=== PATIENT | female | born 1950 | race Caucasian/White ===

== ENCOUNTER 2019-05-18 17:10 | Inpatient (IN) | payer MEDICARE, OTHER ==
[~2019-05-18] VITALS: Ht 157.5 cm; Wt 62.3 kg
[~2019-05-18 17:10] MED LIST: ACET-3067 PO; AMLO10TA4 PO; ASPI-611 PO; ATOR10TA70 PO; CARV3.122 PO; CHLO25TA2 PO; GLIP10TA11 PO; LOSA100T57 PO; METF-438 PO; MULT-1085 PO; TRAM50TA2 PO
[2019-05-18] MEDS ORDERED: vancomycin/NS 1 GM ADD-VANTAGE 250 ML IV ONE (17:40)
[2019-05-18] MEDS ORDERED: piperacillin/tazo 3.375gm/50ml 50 ML IV ONE (17:40)
--- NOTE | 2019-05-18 17:45 | NUR ---
Note gerardo in EDM - 05/18/19 at 1839 by MALATHI Unable to assess pedal or tibialis pulse on left foot viad doppler. Dr. Mccord notified and is aware.
--- NOTE | 2019-05-18 17:45 | NUR ---
Unable to assess pedal or tibialis pulse on left foot via doppler. Dr. Mccord notified and is aware.
--- NOTE | 2019-05-18 17:49 | NUR ---
XR at bedside
--- NOTE | 2019-05-18 18:22 | NUR ---
Phlebotomy at bedside for blood draw.
--- NOTE | 2019-05-18 18:43 | NUR ---
Dr. Mccord at bedside assessing pedal pulse via doppler.
--- NOTE | 2019-05-18 18:46 | NUR ---
Per Brandon. Suri, +1 weak pulse at L-popliteal, no pulses assessed at posterior tibialis or pedal sites to LLE.
[2019-05-18 18:48] LABS: BASOPHILS # (AUTO) 0.1 X10'3 (0-0.2); EOSINOPHILS % (AUTO) 0 % (0-6); HEMOGLOBIN 9.1 g/dl (12.0-16.0); MONOCYTES # (AUTO) 1.1 X10'3 (0-0.9)
[2019-05-18 18:50] LABS: BASOPHILS % (AUTO) 0.3 % (0-1); HEMATOCRIT 28.5 % (35.0-45.0); LYMPHOCYTES % (AUTO) 4.2 % (21-51); MEAN CORPUSCULAR HEMOGLOBIN 25.2 PG (27.0-31.0); MEAN PLATELET VOLUME 8.3 FL (7.4-10.4); MONOCYTES % (AUTO) 4.6 % (2-12); NEUTROPHILS # (AUTO) 21.3 X10'3 (1.8-7.7); NEUTROPHILS % (AUTO) 90.9 % (42-75); PLATELET COUNT 672 X10'3 (140-440); RED BLOOD COUNT 3.61 X10'6 (4.20-5.60); WHITE BLOOD COUNT 23.5 X10'3 (4.5-11.0)
[2019-05-18 19:03] LABS: ALANINE AMINOTRANSFERASE 13 U/L (12-78); ALBUMIN 2.1 G/DL (3.4-5.0); ALBUMIN/GLOBULIN RATIO 0.4 (1.1-1.5); ALKALINE PHOSPHATASE 215 IU/L (46-116); ANION GAP 11 (8-16); ASPARTATE AMINO TRANSFERASE 13 U/L (10-37); BILIRUBIN,TOTAL 0.2 MG/DL (0.1-1.0); BLOOD UREA NITROGEN 34 MG/DL (7-18); BUN/CREATININE RATIO 14.2 (6.6-38.0); CALCIUM 8.7 MG/DL (8.5-10.1); CHLORIDE 95 MMOL/L (99-107); CREATININE 2.39 MG/DL (0.40-0.90); GLUCOSE 299 MG/DL (70-104); MAGNESIUM 1.7 MG/DL (1.5-2.4); SODIUM 132 MMOL/L (135-145); TOTAL CARBON DIOXIDE 25.8 MMOL/L (24-32); eGFR 20 ML/MIN
[2019-05-18 19:05] LABS: PARTIAL THROMBOPLASTIN TIME 43 SECONDS (22-32)
[2019-05-18 19:17] LABS: C-REACTIVE PROTEIN 37.08 MG/DL (0.0-0.5)
[2019-05-18] MEDS ORDERED: LEVO75TA PO (19:27)
[2019-05-18] MEDS ORDERED: LISI40TA4 PO (19:28)
--- NOTE | 2019-05-18 20:20 | NUR ---
VASCULAR AT BEDSIDE
[2019-05-18] MEDS ORDERED: INSU100V9 SQ (20:41)
[2019-05-18] MEDS: insulin glargine (Lantus) pen - multi-dose SQ SCH (21:00)
--- NOTE | 2019-05-18 21:01 | NUR ---
Pt made aware that a UA is needed for eval for admittance. Pt verbalized understanding.
[2019-05-18] MEDS ORDERED: mag hydrox/Alum hydrox/simeth 30ml oral suspension PO PRN (21:05)
[2019-05-18] MEDS ORDERED: magnesium hydroxide 30ml (MOM) UD suspension PO PRN (21:05)
[2019-05-18] MEDS ORDERED: morphine 2 MG/ML inj. syringe IV PRN (21:05)
[2019-05-18] MEDS ORDERED: HYDROcodone/acetaminophen 5mg/325mg tablet PO PRN (21:05)
[2019-05-18] MEDS ORDERED: acetaminophen 325mg tablet PO PRN (21:05)
[2019-05-18] MEDS ORDERED: dextrose 50%-water 50ml dispensing syringe IV PRN ×2 (21:10)
[2019-05-18] MEDS ORDERED: MESSAGE TO PHARMACY PO ONE (21:10)
[2019-05-18] MEDS ORDERED: glucagon, human recombinant 1mg kit SUBCUT PRN (21:10)
[2019-05-18] MEDS ORDERED: heparin 10,000 units/1 ML INJ IV ONE (21:10)
[2019-05-18] MEDS ORDERED: dextrose ORAL solution 15 GM/59 ML bottle PO PRN ×2 (21:10)
[2019-05-18] MEDS ORDERED: heparin 10,000 units/1 ML INJ IV PRN (21:10)
[2019-05-18 22:00] VITALS: BP 156/45
[2019-05-18] MEDS: normal saline 1000ml 1,000 ML IV SCH (22:30)
[2019-05-18] MEDS: heparin 25,000 UNIT/250ml bag 250 ML IV SCH (22:46)
[2019-05-18] MEDS: HYDROcodone/acetaminophen 10/325mg tab PO PRN (23:25)
[2019-05-19] MEDS: HYDROcodone/acetaminophen 10/325mg tab PO PRN ×5 (03:36→23:31)
[2019-05-19 05:43] LABS: BASOPHILS # (AUTO) 0.2 X10'3 (0-0.2); BASOPHILS % (AUTO) 1.1 % (0-1); EOSINOPHILS % (AUTO) 0 % (0-6); HEMATOCRIT 26.3 % (35.0-45.0); HEMOGLOBIN 8.5 g/dl (12.0-16.0); LYMPHOCYTES # (AUTO) 1.6 X10'3 (1.1-4.8); LYMPHOCYTES % (AUTO) 7.7 % (21-51); MEAN CORPUSCULAR HEMOGLOBIN 25.2 PG (27.0-31.0); MEAN CORPUSCULAR HGB CONC 32.2 g/dL (33.0-36.5); MEAN CORPUSCULAR VOLUME 78.2 FL (78-98); MONOCYTES % (AUTO) 4.8 % (2-12); NEUTROPHILS # (AUTO) 18.4 X10'3 (1.8-7.7); NEUTROPHILS % (AUTO) 86.4 % (42-75); PLATELET COUNT 615 X10'3 (140-440); RED BLOOD COUNT 3.37 X10'6 (4.20-5.60); RED CELL DISTRIBUTION WIDTH 14.2 % (11.5-14.5); WHITE BLOOD COUNT 21.3 X10'3 (4.5-11.0)
[2019-05-19 05:44] LABS: ALANINE AMINOTRANSFERASE 14 U/L (12-78); ALBUMIN 1.9 G/DL (3.4-5.0); ALBUMIN/GLOBULIN RATIO 0.4 (1.1-1.5); ALKALINE PHOSPHATASE 192 IU/L (46-116); ANION GAP 11 (8-16); ASPARTATE AMINO TRANSFERASE 9 U/L (10-37); BILIRUBIN,TOTAL 0.2 MG/DL (0.1-1.0); BLOOD UREA NITROGEN 33 MG/DL (7-18); BUN/CREATININE RATIO 16.8 (6.6-38.0); CALCIUM 8.3 MG/DL (8.5-10.1); CHLORIDE 99 MMOL/L (99-107); CREATININE 1.97 MG/DL (0.40-0.90); GLUCOSE 211 MG/DL (70-104); POTASSIUM 3.9 MMOL/L (3.5-5.1); SODIUM 134 MMOL/L (135-145); TOTAL CARBON DIOXIDE 23.7 MMOL/L (24-32); TOTAL PROTEIN 7.2 G/DL (6.4-8.2); eGFR 25 ML/MIN
--- NOTE | 2019-05-19 06:01 | NUR ---
PTT therapeutic. No rate change indicated.
[2019-05-19 06:35] VITALS: BP 165/59
--- NOTE | 2019-05-19 06:40 | NUR ---
Patient in room [facility]TH[facility] 4016. I have received report from Ольга Love RN and had the opportunity to ask questions and assume patient care.
--- NOTE | 2019-05-19 06:44 | NUR ---
Problems reprioritized. Patient report given, questions answered & plan of care reviewed with Salina FERRER.
[2019-05-19] MEDS ORDERED: duloxetine 20mg capsule.DR PO SCH (08:00)
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
[2019-05-19] MEDS: normal saline 1000ml 1,000 ML IV SCH ×2 (08:52→17:03)
[2019-05-19] MEDS: levoTHYROXINE 100mcg tablet PO SCH (08:53)
--- NOTE | 2019-05-19 09:00 | NUR ---
Vitals rechecked, BP 150/46, HR 98. Pt frequently discusses personal traumas/situations in her life. Wound care is also at bedside reviewing plan of care and dressing pt's wounds.
--- NOTE | 2019-05-19 09:53 | NUR ---
Called pharmacy for the Zosyn at 0845, advised it was being brought up. Called at 09:30 and was advised it was en route. Called at 09:53 and was advised another was being sent up.
[2019-05-19 10:00] VITALS: BP 150/46
[2019-05-19] MEDS: piperacillin/tazo 3.375gm/50ml 50 ML IV SCH ×3 (10:14→21:21)
--- NOTE | 2019-05-19 13:04 | NUR ---
DIABETIC FOOT CARE EDUCATION PROVIDED BY WOUND CARE * Wash your feet daily with lukewarm water and soap. * Dry your feet well, especially between the toes. * Keep the skin moisturized with lotion, but do not apply it between the toes. * Check your feet for blisters, cuts or sores. * Use an emery board to shape your toenails even with the ends of your toes. * Change daily into clean, soft socks or stockings, not too big or too small. * Keep your feet warm and dry. * Preferably wear special padded socks and shoes that fit well. * Never walk barefoot indoors or outdoors. * Examine your shoes everyday for cracks, mickey, nails or anything that could hurt your feet. * Tell your doctor if you find any of these problems or have any concerns after examining your feet. WOUND INFECTION EDUCATION PROVIDED BY WOUND CARE 1. Patient instructed to call their primary doctor, or go the ED immediately if any of the following symptoms occur: * Increased pain in wound * Increase in drainage from the wound * Redness in the skin surrounding the wound * Warmth in the skin surrounding the wound * Bleeding from the wound * Temperature of 101 or greater 2. If any of these occur while in the hospital tell a nurse immediately. Addendum: 05/19/19 at 1305 by Sindi Spann RN Amended: Links added.
--- NOTE | 2019-05-19 13:04 | NUR ---
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 Pt declined verbal DM review by RD; written DM handout w/ RD contact information and referral to CDE course was provided. Pt requests finely chopped meats w/ gravy on side; dietary notified. PO 50% avg meals decent given wt. Pt has normal strength, L foot +4 egema r/t necrotic injury. Given no visible signs of muscle/fat wasting pt does not qualify for malnutrition at this time; will continue to monitor. Rec: 1. continue carb controlled diet; finely chopped meats w/ gravy on side; no bottom teeth 2. monitor for ONS needs 3. wt per rx Addendum: 05/19/19 at [address] Amended: Links added.
[2019-05-19] MEDS: insulin Lispro (HumaLOG) vial - multi-dose SQ SCH ×2 (14:07→19:29)
--- NOTE | 2019-05-19 16:30 | NUR ---
I received patient report from Salina FERRER
--- NOTE | 2019-05-19 16:42 | NUR ---
Problems reprioritized. Patient report given, questions answered & plan of care reviewed with
[2019-05-19] MEDS: heparin 25,000 UNIT/250ml bag 250 ML IV SCH (17:56)
[2019-05-19 18:00] VITALS: BP 158/48
--- NOTE | 2019-05-19 18:33 | NUR ---
Patient report given to Ольга Santillan RN
[2019-05-19] MEDS: Dakins solution (1/4 strength) 473ml solution TP SCH ×2 (19:21→19:22)
[2019-05-19] MEDS: lactobacillus rhamnosus 10,000 MMU CELLS/CAPSULE PO SCH (19:31)
[2019-05-19] MEDS: vancomycin/NS 1 GM ADD-VANTAGE 250 ML IV SCH (19:31)
[2019-05-19] MEDS: insulin glargine (Lantus) pen - multi-dose SQ SCH (21:27)
--- NOTE | 2019-05-20 00:14 | NUR ---
PTT therapeutic at 52. No rate change indicated.
[2019-05-20] MEDS: normal saline 1000ml 1,000 ML IV SCH ×3 (03:11→23:03)
[2019-05-20] MEDS: HYDROcodone/acetaminophen 10/325mg tab PO PRN ×5 (04:49→23:13)
[2019-05-20 05:57] LABS: BASOPHILS # (AUTO) 0.1 X10'3 (0-0.2); EOSINOPHILS # (AUTO) 0.1 X10'3 (0-0.9); EOSINOPHILS % (AUTO) 0.5 % (0-6); HEMATOCRIT 26.8 % (35.0-45.0); HEMOGLOBIN 8.4 g/dl (12.0-16.0); LYMPHOCYTES # (AUTO) 1.6 X10'3 (1.1-4.8); LYMPHOCYTES % (AUTO) 11.6 % (21-51); MEAN CORPUSCULAR HEMOGLOBIN 25.1 PG (27.0-31.0); MEAN CORPUSCULAR HGB CONC 31.6 g/dL (33.0-36.5); MEAN CORPUSCULAR VOLUME 79.4 FL (78-98); MEAN PLATELET VOLUME 8.5 FL (7.4-10.4); NEUTROPHILS # (AUTO) 11.3 X10'3 (1.8-7.7); NEUTROPHILS % (AUTO) 79.9 % (42-75); PLATELET COUNT 545 X10'3 (140-440); RED BLOOD COUNT 3.37 X10'6 (4.20-5.60); RED CELL DISTRIBUTION WIDTH 14.2 % (11.5-14.5); WHITE BLOOD COUNT 14.2 X10'3 (4.5-11.0)
[2019-05-20 06:00] VITALS: BP 162/35
--- NOTE | 2019-05-20 06:14 | NUR ---
PTT 51. no rate change indicated.
[2019-05-20 06:18] LABS: ALANINE AMINOTRANSFERASE 16 U/L (12-78); ALBUMIN 1.7 G/DL (3.4-5.0); ALBUMIN/GLOBULIN RATIO 0.3 (1.1-1.5); ALKALINE PHOSPHATASE 211 IU/L (46-116); ANION GAP 10 (8-16); ASPARTATE AMINO TRANSFERASE 19 U/L (10-37); BILIRUBIN,TOTAL 0.3 MG/DL (0.1-1.0); BLOOD UREA NITROGEN 21 MG/DL (7-18); BUN/CREATININE RATIO 13.6 (6.6-38.0); CALCIUM 8.1 MG/DL (8.5-10.1); CHLORIDE 105 MMOL/L (99-107); CREATININE 1.54 MG/DL (0.40-0.90); GLUCOSE 129 MG/DL (70-104); SODIUM 140 MMOL/L (135-145); TOTAL CARBON DIOXIDE 25.5 MMOL/L (24-32); TOTAL PROTEIN 6.7 G/DL (6.4-8.2); eGFR 33 ML/MIN
--- NOTE | 2019-05-20 06:34 | NUR ---
Problems reprioritized. Patient report given, questions answered & plan of care reviewed with NABIL Carolina.
[2019-05-20] MEDS: morphine 2 MG/ML inj. syringe IV PRN ×3 (07:04→15:43)
[2019-05-20] MEDS: lactobacillus rhamnosus 10,000 MMU CELLS/CAPSULE PO SCH ×2 (08:01→19:25)
[2019-05-20] MEDS: piperacillin/tazo 3.375gm/50ml 50 ML IV SCH ×2 (08:01→20:52)
[2019-05-20] MEDS: levoTHYROXINE 100mcg tablet PO SCH (08:01)
[2019-05-20] MEDS: Dakins solution (1/4 strength) 473ml solution TP SCH ×2 (08:02→20:00)
--- NOTE | 2019-05-20 11:56 | NUR ---
Per Dr Gordy nielson to proceed with CTA with gfr 33. Pt has been on NS @100
[2019-05-20] MEDS ORDERED: iohexol 350MG/ML 100ml bottle IV ONE (12:24)
[2019-05-20] MEDS ORDERED: iohexol 350 MG/ML 50ML vial IV ONE (12:24)
--- NOTE | 2019-05-20 12:57 | NUR ---
PAGER ID: [phone] MESSAGE: Caity Branch0 re chris in 4015- - CLARENCE results- bilateral severe disease, R=0.3 and L= 0.1. She is in CTA right now
[2019-05-20] MEDS: heparin 25,000 UNIT/250ml bag 250 ML IV SCH ×2 (13:20→17:16)
[2019-05-20] MEDS: ondansetron/PF 4mg/2ml inj IV PRN (17:48)
[2019-05-20 18:00] VITALS: BP 124/64
[2019-05-20] MEDS: insulin Lispro (HumaLOG) vial - multi-dose SQ SCH (19:24)
[2019-05-20] MEDS: vancomycin/NS 1 GM ADD-VANTAGE 250 ML IV SCH (19:25)
--- NOTE | 2019-05-20 19:35 | NUR ---
PTT 47. no rate change indicated.
[2019-05-20] MEDS: insulin glargine (Lantus) pen - multi-dose SQ SCH (20:57)
[2019-05-20 22:00] VITALS: BP_SYST 146; BP_SYST 154; BP_DIAS 48; BP_DIAS 60
[2019-05-21 02:03] LABS: BASOPHILS # (AUTO) 0.1 X10'3 (0-0.2); BASOPHILS % (AUTO) 0.7 % (0-1); EOSINOPHILS % (AUTO) 0.3 % (0-6); HEMATOCRIT 24.3 % (35.0-45.0); HEMOGLOBIN 7.9 g/dl (12.0-16.0); LYMPHOCYTES # (AUTO) 1.9 X10'3 (1.1-4.8); MEAN CORPUSCULAR HEMOGLOBIN 25.7 PG (27.0-31.0); MEAN CORPUSCULAR HGB CONC 32.7 g/dL (33.0-36.5); MEAN CORPUSCULAR VOLUME 78.7 FL (78-98); MEAN PLATELET VOLUME 7.8 FL (7.4-10.4); MONOCYTES # (AUTO) 1.1 X10'3 (0-0.9); MONOCYTES % (AUTO) 6.6 % (2-12); NEUTROPHILS # (AUTO) 12.8 X10'3 (1.8-7.7); NEUTROPHILS % (AUTO) 80.4 % (42-75); PLATELET COUNT 564 X10'3 (140-440); RED BLOOD COUNT 3.09 X10'6 (4.20-5.60); RED CELL DISTRIBUTION WIDTH 14.5 % (11.5-14.5); WHITE BLOOD COUNT 15.9 X10'3 (4.5-11.0)
[2019-05-21 02:29] LABS: ALANINE AMINOTRANSFERASE 18 U/L (12-78); ALBUMIN 1.7 G/DL (3.4-5.0); ALBUMIN/GLOBULIN RATIO 0.3 (1.1-1.5); ALKALINE PHOSPHATASE 249 IU/L (46-116); ANION GAP 8 (8-16); ASPARTATE AMINO TRANSFERASE 16 U/L (10-37); BILIRUBIN,TOTAL 0.2 MG/DL (0.1-1.0); BLOOD UREA NITROGEN 15 MG/DL (7-18); BUN/CREATININE RATIO 9.9 (6.6-38.0); CALCIUM 7.8 MG/DL (8.5-10.1); CHLORIDE 101 MMOL/L (99-107); CREATININE 1.51 MG/DL (0.40-0.90); GLUCOSE 111 MG/DL (70-104); POTASSIUM 3.8 MMOL/L (3.5-5.1); SODIUM 135 MMOL/L (135-145); TOTAL CARBON DIOXIDE 25.8 MMOL/L (24-32); TOTAL PROTEIN 6.8 G/DL (6.4-8.2); eGFR 34 ML/MIN
--- NOTE | 2019-05-21 02:41 | NUR ---
PTT 55. no rate change indicated.
[2019-05-21] MEDS: HYDROcodone/acetaminophen 10/325mg tab PO PRN ×5 (03:32→21:56)
[2019-05-21 06:00] VITALS: BP 155/46
--- NOTE | 2019-05-21 06:25 | NUR ---
Problems reprioritized. Patient report given, questions answered & plan of care reviewed with NABIL Carolina.
[2019-05-21] MEDS: piperacillin/tazo 3.375gm/50ml 50 ML IV SCH ×2 (07:33→22:13)
[2019-05-21] MEDS: Dakins solution (1/4 strength) 473ml solution TP SCH ×2 (07:34→20:00)
[2019-05-21] MEDS: levoTHYROXINE 100mcg tablet PO SCH (07:34)
[2019-05-21] MEDS: lactobacillus rhamnosus 10,000 MMU CELLS/CAPSULE PO SCH ×2 (07:34→21:56)
[2019-05-21] MEDS: normal saline 1000ml 1,000 ML IV SCH ×2 (09:03→15:39)
[2019-05-21] MEDS: insulin Lispro (HumaLOG) vial - multi-dose SQ SCH ×2 (09:19→13:41)
[2019-05-21 10:00] VITALS: BP 149/40
[2019-05-21] MEDS: heparin 25,000 UNIT/250ml bag 250 ML IV SCH ×2 (14:45→15:21)
[2019-05-21] MEDS ORDERED: VANCOMYCIN LEVEL IV ONE (18:30)
[2019-05-21 19:00] VITALS: BP 147/44
[2019-05-21] MEDS: vancomycin/NS 1 GM ADD-VANTAGE 250 ML IV SCH (19:29)
[2019-05-21] MEDS: insulin glargine (Lantus) pen - multi-dose SQ SCH (21:58)
[2019-05-21 22:49] VITALS: BP 168/55
[2019-05-22] MEDS: HYDROcodone/acetaminophen 10/325mg tab PO PRN ×4 (03:34→19:19)
[2019-05-22] MEDS: normal saline 1000ml 1,000 ML IV SCH ×2 (05:03→07:32)
[2019-05-22 06:00] VITALS: BP 152/60
[2019-05-22 06:35] LABS: BASOPHILS # (AUTO) 0.1 X10'3 (0-0.2); BASOPHILS % (AUTO) 0.4 % (0-1); EOSINOPHILS # (AUTO) 0.1 X10'3 (0-0.9); EOSINOPHILS % (AUTO) 0.6 % (0-6); HEMATOCRIT 24.7 % (35.0-45.0); HEMOGLOBIN 7.9 g/dl (12.0-16.0); LYMPHOCYTES # (AUTO) 1.4 X10'3 (1.1-4.8); LYMPHOCYTES % (AUTO) 9.3 % (21-51); MEAN CORPUSCULAR HEMOGLOBIN 25.4 PG (27.0-31.0); MEAN CORPUSCULAR VOLUME 79.4 FL (78-98); MEAN PLATELET VOLUME 8.5 FL (7.4-10.4); MONOCYTES # (AUTO) 0.8 X10'3 (0-0.9); MONOCYTES % (AUTO) 5.5 % (2-12); NEUTROPHILS # (AUTO) 12.8 X10'3 (1.8-7.7); NEUTROPHILS % (AUTO) 84.2 % (42-75); PLATELET COUNT 535 X10'3 (140-440); RED BLOOD COUNT 3.11 X10'6 (4.20-5.60); RED CELL DISTRIBUTION WIDTH 14.5 % (11.5-14.5); WHITE BLOOD COUNT 15.1 X10'3 (4.5-11.0)
--- NOTE | 2019-05-22 06:37 | NUR ---
Patient in room [facility]TH[facility] 4016. I have received report from Luc FERRER and had the opportunity to ask questions and assume patient care.
[2019-05-22 06:59] LABS: ALANINE AMINOTRANSFERASE 19 U/L (12-78); ALBUMIN 1.7 G/DL (3.4-5.0); ALBUMIN/GLOBULIN RATIO 0.3 (1.1-1.5); ALKALINE PHOSPHATASE 294 IU/L (46-116); ANION GAP 13 (8-16); ASPARTATE AMINO TRANSFERASE 18 U/L (10-37); BILIRUBIN,TOTAL 0.3 MG/DL (0.1-1.0); BLOOD UREA NITROGEN 17 MG/DL (7-18); BUN/CREATININE RATIO 10.8 (6.6-38.0); CALCIUM 7.7 MG/DL (8.5-10.1); CHLORIDE 103 MMOL/L (99-107); CREATININE 1.57 MG/DL (0.40-0.90); GLUCOSE 142 MG/DL (70-104); POTASSIUM 3.7 MMOL/L (3.5-5.1); SODIUM 140 MMOL/L (135-145); TOTAL CARBON DIOXIDE 23.6 MMOL/L (24-32); TOTAL PROTEIN 6.8 G/DL (6.4-8.2); eGFR 33 ML/MIN
[2019-05-22] MEDS: piperacillin/tazo 3.375gm/50ml 50 ML IV SCH ×2 (07:23→21:22)
[2019-05-22] MEDS: levoTHYROXINE 100mcg tablet PO SCH (07:23)
[2019-05-22] MEDS: lactobacillus rhamnosus 10,000 MMU CELLS/CAPSULE PO SCH ×2 (07:23→19:19)
[2019-05-22] MEDS: Dakins solution (1/4 strength) 473ml solution TP SCH ×2 (07:25→20:00)
[2019-05-22] MEDS: ondansetron/PF 4mg/2ml inj IV PRN ×2 (07:32→17:50)
[2019-05-22] MEDS: insulin Lispro (HumaLOG) vial - multi-dose SQ SCH ×2 (08:57→13:17)
[2019-05-22 10:00] VITALS: BP 153/55
[2019-05-22] MEDS: heparin 25,000 UNIT/250ml bag 250 ML IV SCH ×2 (13:48→20:20)
[2019-05-22 14:33] LABS: PARTIAL THROMBOPLASTIN TIME 46 SECONDS (22-32)
--- NOTE | 2019-05-22 18:02 | NUR ---
Hung hospitalist [phone] to see when heparin drip should be stopped for surgery tomorrow, will continue to monitor
[2019-05-22 18:30] VITALS: BP 143/76
--- NOTE | 2019-05-22 18:31 | NUR ---
Problems reprioritized. Patient report given, questions answered & plan of care reviewed with Jerilyn FERRER.
[2019-05-22] MEDS: vancomycin/NS 1 GM ADD-VANTAGE 250 ML IV SCH (19:20)
[2019-05-22] MEDS: insulin glargine (Lantus) pen - multi-dose SQ SCH (21:19)
[2019-05-22 22:00] VITALS: BP 175/60
[2019-05-23] VITALS (12 sets, daily range): BP systolic 82–189; BP diastolic 42–99
[2019-05-23] MEDS: HYDROcodone/acetaminophen 10/325mg tab PO PRN ×4 (00:37→21:19)
[2019-05-23] MEDS: normal saline 1000ml 1,000 ML IV SCH ×4 (00:40→14:22)
[2019-05-23] MEDS: heparin 25,000 UNIT/250ml bag 250 ML IV SCH ×2 (03:28→21:17)
[2019-05-23 06:20] LABS: ALANINE AMINOTRANSFERASE 18 U/L (12-78); ALBUMIN 1.7 G/DL (3.4-5.0); ALBUMIN/GLOBULIN RATIO 0.3 (1.1-1.5); ALKALINE PHOSPHATASE 299 IU/L (46-116); ANION GAP 12 (8-16); ASPARTATE AMINO TRANSFERASE 16 U/L (10-37); BILIRUBIN,TOTAL 0.2 MG/DL (0.1-1.0); BLOOD UREA NITROGEN 16 MG/DL (7-18); BUN/CREATININE RATIO 10.1 (6.6-38.0); CHLORIDE 103 MMOL/L (99-107); CREATININE 1.59 MG/DL (0.40-0.90); GLUCOSE 191 MG/DL (70-104); POTASSIUM 3.6 MMOL/L (3.5-5.1); SODIUM 140 MMOL/L (135-145); TOTAL CARBON DIOXIDE 24.6 MMOL/L (24-32); eGFR 32 ML/MIN
[2019-05-23 06:21] LABS: BASOPHILS # (AUTO) 0.1 X10'3 (0-0.2); BASOPHILS % (AUTO) 0.4 % (0-1); EOSINOPHILS # (AUTO) 0.1 X10'3 (0-0.9); EOSINOPHILS % (AUTO) 0.5 % (0-6); HEMATOCRIT 24.9 % (35.0-45.0); LYMPHOCYTES # (AUTO) 1.4 X10'3 (1.1-4.8); LYMPHOCYTES % (AUTO) 8.9 % (21-51); MEAN CORPUSCULAR HEMOGLOBIN 25.4 PG (27.0-31.0); MEAN CORPUSCULAR VOLUME 79.3 FL (78-98); MONOCYTES % (AUTO) 6.2 % (2-12); NEUTROPHILS # (AUTO) 13.1 X10'3 (1.8-7.7); PLATELET COUNT 541 X10'3 (140-440); RED BLOOD COUNT 3.14 X10'6 (4.20-5.60); RED CELL DISTRIBUTION WIDTH 14.7 % (11.5-14.5); WHITE BLOOD COUNT 15.6 X10'3 (4.5-11.0)
--- NOTE | 2019-05-23 06:44 | NUR ---
Patient in room [facility]TH[facility] 4016. I have received report from Jerilyn RN and had the opportunity to ask questions and assume patient care.
[2019-05-23] MEDS: Dakins solution (1/4 strength) 473ml solution TP SCH ×2 (07:28→20:00)
[2019-05-23] MEDS: levoTHYROXINE 100mcg tablet PO SCH (07:28)
[2019-05-23] MEDS: piperacillin/tazo 3.375gm/50ml 50 ML IV SCH ×2 (07:28→20:58)
[2019-05-23] MEDS: lactobacillus rhamnosus 10,000 MMU CELLS/CAPSULE PO SCH ×2 (07:28→20:58)
[2019-05-23] MEDS ORDERED: LIDOcaine 1%/PF 5ML 10 MG/ML VIAL SQ ONE (08:20)
[2019-05-23] MEDS ORDERED: fentaNYL/PF 50MCG/1 ML 2ML syringe IV PRN (08:20)
[2019-05-23] MEDS ORDERED: heparin 1,000 UNITS/NS 500ml 500 ML ICATH ONE (08:20)
[2019-05-23] MEDS ORDERED: midazolam 2 mg/2 ml injection IV PRN (08:20)
[2019-05-23] MEDS ORDERED: iohexol 300mg/ml 100ml inj. ONE ×2 (08:37→08:52)
[2019-05-23] MEDS ORDERED: LIDOcaine 1%/PF 5ML 10 MG/ML VIAL ONE (08:37)
[2019-05-23] MEDS ORDERED: heparin 1,000 UNITS/NS 500ml 500 ML ONE (08:52)
[2019-05-23] MEDS ORDERED: fentaNYL/PF 50MCG/1 ML 2ML syringe ONE ×3 (08:52→09:57)
[2019-05-23] MEDS ORDERED: midazolam 2 mg/2 ml injection ONE ×2 (08:52→09:40)
[2019-05-23] MEDS ORDERED: hydrALAZINE 20mg/ml inj. IV ONE (09:21)
--- NOTE | 2019-05-23 10:00 | NUR ---
patient NPO and was in procedure did not cover morning blood sugar, will continue to monitor
[2019-05-23] MEDS: insulin Lispro (HumaLOG) vial - multi-dose SQ SCH (14:18)
--- NOTE | 2019-05-23 18:11 | NUR ---
Problems reprioritized. Patient report given, questions answered & plan of care reviewed with Jaclyn FERRER.
[2019-05-23] MEDS: vancomycin/NS 1 GM ADD-VANTAGE 250 ML IV SCH (18:41)
[2019-05-23] MEDS: insulin glargine (Lantus) pen - multi-dose SQ SCH (21:16)
[2019-05-24] VITALS (27 sets, daily range): BP systolic 129–202; BP diastolic 47–113
[2019-05-24] MEDS: HYDROcodone/acetaminophen 10/325mg tab PO PRN (03:55)
[2019-05-24] MEDS: Dakins solution (1/4 strength) 473ml solution TP SCH ×2 (07:16→20:00)
[2019-05-24] MEDS: piperacillin/tazo 3.375gm/50ml 50 ML IV SCH ×2 (07:16→16:00)
[2019-05-24] MEDS: levoTHYROXINE 100mcg tablet PO SCH (07:16)
[2019-05-24] MEDS: lactobacillus rhamnosus 10,000 MMU CELLS/CAPSULE PO SCH ×2 (07:16→23:40)
[2019-05-24] MEDS ORDERED: fentaNYL/PF 50MCG/1 ML 2ML syringe IV PRN ×2 (11:45)
[2019-05-24] MEDS ORDERED: ondansetron/PF 4mg/2ml inj IV PRN (11:45)
[2019-05-24] MEDS ORDERED: ringers solution, lacted 1,000 ML IV SCH (11:45)
[2019-05-24] MEDS ORDERED: HYDROmorphone inj. 0.5 MG/0.5 ML DISP.SYRIN IV PRN ×2 (11:45)
[2019-05-24] MEDS: normal saline 1000ml 1,000 ML IV SCH (13:10)
--- NOTE | 2019-05-24 13:14 | NUR ---
reassessment: Pt PO 50-75% avg regular diet does fluctuate. Currently NPO for OR today for L foot gangrene. LB 05/22. Will monitor for additional protein needs post-op. Rec: 1. continue carb controlled diet; finely chopped meats w/ gravy on side; no bottom teeth 2. monitor for ONS needs post-op 3. wt per rx Addendum: 05/24/19 at [address] Amended: Links added.
[2019-05-24] MEDS ORDERED: LIDOcaine 1%/PF 5ML 10 MG/ML VIAL ONE (14:45)
[2019-05-24] MEDS ORDERED: sevoflurane 250ml liquid IH ONE (14:45)
[2019-05-24] MEDS ORDERED: midazolam 2 mg/2 ml injection ONE (14:50)
[2019-05-24] MEDS ORDERED: fentaNYL /PF 50mcg/ml 5ml ampule ONE (14:51)
[2019-05-24] MEDS ORDERED: propofol inj 20 ML IV ONE (15:48)
[2019-05-24] MEDS ORDERED: ondansetron/PF 4mg/2ml inj ONE (15:48)
[2019-05-24] MEDS ORDERED: glycopyrrolate 0.2mg/ml inj ONE (15:48)
[2019-05-24] MEDS ORDERED: neostigmine methylsulfate 1 MG/ML 10ml vial ONE (15:48)
[2019-05-24] MEDS ORDERED: LIDOcaine 2% (20mg/ml) 5ml vial ONE (15:48)
[2019-05-24] MEDS ORDERED: labetalol 20mg/4ml (5mg/ml) syringe IV ONE (15:48)
[2019-05-24] MEDS ORDERED: rocuronium 10mg/ml inj IV ONE (15:48)
[2019-05-24] MEDS ORDERED: HYDROmorphone 1 mg/ml syringe ONE ×2 (15:51→16:20)
[2019-05-24] MEDS ORDERED: hydrALAZINE 20mg/ml inj. IV ONE (15:58)
--- NOTE | 2019-05-24 16:07 | NUR ---
Received from OR via BED, accompanied by Anesthesiologist DR JANE and report given by Anesthesiologist. PT DROWSY, LEFT BKA W/STOCKING OVER INCISION/DRSG, CDI. ISTAT DRAWN AND DISCUSSED W/DR JANE, BLOOD ORDERED AND TRANSFUSION STARTED PER MD ORDERS, PT WAS PAINFUL, MEDS GIVEN AND PAIN IMPROVED. Addendum: 05/24/19 at 1819 by Allie Coyle RN Amended: Links added.
[2019-05-24] MEDS ORDERED: enalaprilat dihydrate 2.5mg/2ml vial IV ONE (16:20)
[2019-05-24] MEDS ORDERED: acetaminophen 1,000mg/100ml IV 100 ML IV ONE (16:20)
[2019-05-24] MEDS ORDERED: insulin regular, human 10 units/0.1 ml syringe IV ONE (16:25)
[2019-05-24 16:31] LABS: ISTAT CREATININE 1.2 mg/dL (0.6-1.1); ISTAT HGB 7.1 g/dl (12.0-16.0); ISTAT IONIZED CALCIUM 1.01 mmol/L (1.03-1.32); ISTAT K 3.6 mmol/L (3.5-5.1); POC BUN/CREATININE RATIO 9.2 (6.6-38.0)
[2019-05-24] MEDS: morphine 2 MG/ML inj. syringe IV PRN ×3 (16:34→17:15)
[2019-05-24] MEDS: heparin 25,000 UNIT/250ml bag 250 ML IV SCH ×4 (16:36→23:42)
[2019-05-24] MEDS ORDERED: morphine 4 MG/ML inj SYRINge IV PRN ×2 (17:05)
[2019-05-24] MEDS: HYDROmorphone/NS 1 mg/ml CADD 50 ML IV SCH ×4 (17:57→23:00)
--- NOTE | 2019-05-24 18:27 | NUR ---
Report called to receiving nurse. Transferred ON TELE W/CONTINUOUS PULSE OX, via BED, NO Belongings, RECEIVING RN AT BEDSIDE TO RECEIVE PT, PT ATTACHED TO VSS, BLL, CALL LIGHT GIVEN, SIDE RAILS UP X 2, PT MUCH MORE COMFORTABLE, USING DILAUDID CADD APPROPRIATELY, 1ST UNIT OF BLOOD STILL TRANSFUSING, NO S/S OF A REACTION. Special Issues communicated to receiving nurse. YES. Addendum: 05/24/19 at 1857 by Allie Coyle RN Amended: Links added.
--- NOTE | 2019-05-24 19:03 | NUR ---
Patient in room [facility]TH[facility] 4016. I have received report from Heidy FERRER and had the opportunity to ask questions and assume patient care. Pt just arrived on the unit at approx 1840. Heparin drip going at 1300, CADD pump connected to NS @20, and blood running @ 175. Pt is pleasant spirts, no sign of distress, will continue to monitor.
[2019-05-24] MEDS: insulin Lispro (HumaLOG) vial - multi-dose SQ SCH (21:22)
[2019-05-24] MEDS: insulin glargine (Lantus) pen - multi-dose SQ SCH (21:22)
[2019-05-24] MEDS: vancomycin/NS 1 GM ADD-VANTAGE 250 ML IV SCH (23:37)
[2019-05-25] VITALS (7 sets, daily range): BP systolic 161–204; BP diastolic 55–83
[2019-05-25] MEDS: HYDROmorphone/NS 1 mg/ml CADD 50 ML IV SCH ×4 (01:00→07:00)
[2019-05-25] MEDS: piperacillin/tazo 3.375gm/50ml 50 ML IV SCH ×3 (01:29→17:33)
[2019-05-25] MEDS ORDERED: amLODIPine 5mg tablet PO ONE (03:20)
[2019-05-25] MEDS: normal saline 1000ml 1,000 ML IV SCH ×2 (03:37→15:50)
[2019-05-25] MEDS: hydrALAZINE 20mg/ml inj. IV PRN ×3 (03:39→23:19)
[2019-05-25] MEDS: ondansetron/PF 4mg/2ml inj IV PRN (04:23)
[2019-05-25 06:04] LABS: BASOPHILS # (AUTO) 0.2 X10'3 (0-0.2); BASOPHILS % (AUTO) 1.4 % (0-1); EOSINOPHILS # (AUTO) 0.2 X10'3 (0-0.9); EOSINOPHILS % (AUTO) 1.7 % (0-6); HEMATOCRIT 31.3 % (35.0-45.0); HEMOGLOBIN 10.4 g/dl (12.0-16.0); LYMPHOCYTES # (AUTO) 1.3 X10'3 (1.1-4.8); LYMPHOCYTES % (AUTO) 9.1 % (21-51); MEAN CORPUSCULAR HEMOGLOBIN 27.4 PG (27.0-31.0); MEAN CORPUSCULAR HGB CONC 33.4 g/dL (33.0-36.5); MEAN CORPUSCULAR VOLUME 82.1 FL (78-98); MEAN PLATELET VOLUME 8.4 FL (7.4-10.4); MONOCYTES # (AUTO) 1.2 X10'3 (0-0.9); MONOCYTES % (AUTO) 8.1 % (2-12); NEUTROPHILS # (AUTO) 11.5 X10'3 (1.8-7.7); NEUTROPHILS % (AUTO) 79.7 % (42-75); PLATELET COUNT 491 X10'3 (140-440); RED BLOOD COUNT 3.81 X10'6 (4.20-5.60); RED CELL DISTRIBUTION WIDTH 16.1 % (11.5-14.5); WHITE BLOOD COUNT 14.5 X10'3 (4.5-11.0)
--- NOTE | 2019-05-25 06:27 | NUR ---
Problems reprioritized. Patient report given, questions answered & plan of care reviewed with Shireen FERRER.
[2019-05-25] MEDS: lactobacillus rhamnosus 10,000 MMU CELLS/CAPSULE PO SCH ×2 (07:51→21:37)
[2019-05-25] MEDS: levoTHYROXINE 100mcg tablet PO SCH (07:51)
--- NOTE | 2019-05-25 08:15 | NUR ---
PAGER ID: [phone] MESSAGE: [phone] Denia Lopez Patient received Zofran three hours ago, and it isn't working may I get some Compazine Shireen [phone]
[2019-05-25] MEDS ORDERED: morphine/NS 5 mg/ml CADD 100 ML IV SCH (08:35)
[2019-05-25] MEDS ORDERED: proCHLORperazine 10 MG/2 ml inj IV PRN (08:35)
[2019-05-25] MEDS: insulin Lispro (HumaLOG) vial - multi-dose SQ SCH ×2 (08:56→13:14)
[2019-05-25] MEDS ORDERED: HYDROcodone/acetaminophen 10/325mg tab PO PRN (09:35)
[2019-05-25] MEDS ORDERED: morphine 2 MG/ML inj. syringe IV ONE (09:35)
[2019-05-25] MEDS: morphine/NS 5 mg/ml CADD 50 ML IV SCH ×6 (11:10→21:40)
[2019-05-25] MEDS: HYDROcodone/acetaminophen 10/325mg tab PO PRN ×3 (11:17→21:38)
[2019-05-25] MEDS: CADD PCA waste documentation MC SCH (12:25)
--- NOTE | 2019-05-25 18:24 | NUR ---
Report to Anne Marie FERRER
[2019-05-25] MEDS ORDERED: morphine/NS 5 mg/ml CADD 50 ML IV SCH (19:00)
[2019-05-25] MEDS: vancomycin/NS 1 GM ADD-VANTAGE 250 ML IV SCH ×2 (19:00→21:53)
--- NOTE | 2019-05-25 19:05 | NUR ---
called Dr. Kaminski for pain control. increased morphine cadd to 2mg every 10 demand dose only. ok to give norco as back up pain control. leave heparin drip on for tonight and reassess in am for healing.
[2019-05-25] MEDS: heparin 25,000 UNIT/250ml bag 250 ML IV SCH (19:16)
[2019-05-25] MEDS ORDERED: VANCOMYCIN LEVEL IV ONE (19:30)
[2019-05-25] MEDS: Dakins solution (1/4 strength) 473ml solution TP SCH ×2 (20:00→20:16)
--- NOTE | 2019-05-25 20:00 | NUR ---
changed zosyn to primary line. added NS to own line to run continuoustly. vanco running through NS line piggyback. noted to pharmacy about critical vanco level. pharmacy ordered dose to be given tonight. will run after zosyn complete
[2019-05-25] MEDS: insulin glargine (Lantus) pen - multi-dose SQ SCH (21:40)
[2019-05-26] MEDS: piperacillin/tazo 3.375gm/50ml 50 ML IV SCH ×2 (00:27→07:35)
[2019-05-26] MEDS: morphine/NS 5 mg/ml CADD 50 ML IV SCH ×7 (01:00→13:00)
[2019-05-26 02:00] VITALS: BP 141/66
[2019-05-26] MEDS: normal saline 1000ml 1,000 ML IV SCH (05:10)
[2019-05-26 05:15] VITALS: BP 213/81
[2019-05-26] MEDS: hydrALAZINE 20mg/ml inj. IV PRN (05:29)
--- NOTE | 2019-05-26 05:49 | NUR ---
hydralazine given this am for elevated BP. pt in no distress
[2019-05-26 05:55] VITALS: BP 184/62
[2019-05-26] MEDS: levoTHYROXINE 100mcg tablet PO SCH (07:35)
[2019-05-26] MEDS: lactobacillus rhamnosus 10,000 MMU CELLS/CAPSULE PO SCH (07:35)
[2019-05-26 07:46] LABS: BASOPHILS # (AUTO) 0.1 X10'3 (0-0.2); BASOPHILS % (AUTO) 0.7 % (0-1); EOSINOPHILS # (AUTO) 0.1 X10'3 (0-0.9); EOSINOPHILS % (AUTO) 0.9 % (0-6); HEMATOCRIT 31.9 % (35.0-45.0); HEMOGLOBIN 10.7 g/dl (12.0-16.0); LYMPHOCYTES # (AUTO) 1.2 X10'3 (1.1-4.8); LYMPHOCYTES % (AUTO) 8.9 % (21-51); MEAN CORPUSCULAR HGB CONC 33.5 g/dL (33.0-36.5); MEAN CORPUSCULAR VOLUME 83.4 FL (78-98); MONOCYTES % (AUTO) 7.8 % (2-12); NEUTROPHILS # (AUTO) 10.8 X10'3 (1.8-7.7); NEUTROPHILS % (AUTO) 81.7 % (42-75); PLATELET COUNT 471 X10'3 (140-440); RED BLOOD COUNT 3.82 X10'6 (4.20-5.60); RED CELL DISTRIBUTION WIDTH 16.7 % (11.5-14.5); WHITE BLOOD COUNT 13.3 X10'3 (4.5-11.0)
[2019-05-26] MEDS ORDERED: amLODIPine 5mg tablet PO SCH (08:00)
[2019-05-26 08:06] LABS: ALANINE AMINOTRANSFERASE 15 U/L (12-78); ALBUMIN 1.9 G/DL (3.4-5.0); ALBUMIN/GLOBULIN RATIO 0.4 (1.1-1.5); ALKALINE PHOSPHATASE 207 IU/L (46-116); ANION GAP 12 (8-16); ASPARTATE AMINO TRANSFERASE 22 U/L (10-37); BILIRUBIN,TOTAL 0.4 MG/DL (0.1-1.0); BLOOD UREA NITROGEN 13 MG/DL (7-18); BUN/CREATININE RATIO 9.2 (6.6-38.0); CALCIUM 7.8 MG/DL (8.5-10.1); CHLORIDE 103 MMOL/L (99-107); CREATININE 1.41 MG/DL (0.40-0.90); GLUCOSE 179 MG/DL (70-104); POTASSIUM 3.8 MMOL/L (3.5-5.1); SODIUM 138 MMOL/L (135-145); TOTAL CARBON DIOXIDE 23.3 MMOL/L (24-32); TOTAL PROTEIN 7.2 G/DL (6.4-8.2); eGFR 37 ML/MIN
[2019-05-26] MEDS: HYDROcodone/acetaminophen 10/325mg tab PO PRN ×2 (08:48→14:48)
[2019-05-26] MEDS: insulin Lispro (HumaLOG) vial - multi-dose SQ SCH (09:39)
[2019-05-26 10:00] VITALS: BP 156/76
[2019-05-26] MEDS ORDERED: clopidogrel 75mg tablet PO SCH (10:35)
[2019-05-26] MEDS: CADD PCA waste documentation MC SCH (15:07)
== END 2019-05-26 15:00 | DRG 853 ==
LOC: ER 17:11 → EEVIPCON 17:11 → ORTHO 4S 22:21 → CMPBEDREQ 22:29
PROVIDERS: ADMIT Internal Medicine; ATTEND Internal Medicine
PROC: B4201ZZ Computerized Tomography (CT Scan) of Abdominal Aorta using Low Osmolar Contrast (ICD-10-PCS; 2019-05-20)
PROC: B4281ZZ Computerized Tomography (CT Scan) of Bilateral Renal Arteries using Low Osmolar Contrast (ICD-10-PCS; 2019-05-20)
PROC: B42H1ZZ Computerized Tomography (CT Scan) of Bilateral Lower Extremity Arteries using Low Osmolar Contrast (ICD-10-PCS; 2019-05-20)
PROC: 047J3DZ Dilation of Left External Iliac Artery with Intraluminal Device, Percutaneous Approach (ICD-10-PCS; 2019-05-23)
PROC: 047H3ZZ Dilation of Right External Iliac Artery, Percutaneous Approach (ICD-10-PCS; 2019-05-23)
PROC: B42H1ZZ Computerized Tomography (CT Scan) of Bilateral Lower Extremity Arteries using Low Osmolar Contrast (ICD-10-PCS; 2019-05-23)
PROC: 30233N1 Transfusion of Nonautologous Red Blood Cells into Peripheral Vein, Percutaneous Approach (ICD-10-PCS; 2019-05-24)
PROC: 0Y6J0Z3 Detachment at Left Lower Leg, Low, Open Approach (ICD-10-PCS; principal; 2019-05-24 14:45)
DX: A41.9 Sepsis, unspecified organism (principal); N17.0 Acute kidney failure with tubular necrosis; E11.52 Type 2 diabetes mellitus with diabetic peripheral angiopathy with gangrene; I74.5 Embolism and thrombosis of iliac artery; L97.419 Non-pressure chronic ulcer of right heel and midfoot with unspecified severity; M86.8X7 Other osteomyelitis, ankle and foot; E11.42 Type 2 diabetes mellitus with diabetic polyneuropathy; E11.22 Type 2 diabetes mellitus with diabetic chronic kidney disease; E11.621 Type 2 diabetes mellitus with foot ulcer; E11.69 Type 2 diabetes mellitus with other specified complication; E88.09 Other disorders of plasma-protein metabolism, not elsewhere classified; I12.9 Hypertensive chronic kidney disease with stage 1 through stage 4 chronic kidney disease, or unspecified chronic kidney disease; I70.203 Unspecified atherosclerosis of native arteries of extremities, bilateral legs; I70.8 Atherosclerosis of other arteries; N18.3 Chronic kidney disease, stage 3 (moderate); Z79.02 Long term (current) use of antithrombotics/antiplatelets; Z79.4 Long term (current) use of insulin; Z87.891 Personal history of nicotine dependence; Z90.710 Acquired absence of both cervix and uterus; Z80.9 Family history of malignant neoplasm, unspecified
CPT/HCPCS: 36415; 37221; 37247; 71045; 73630; 75635; 76937; 80047; 80053; 80202; 82948; 83036; 83605; 83735; 84145; 84443; 85025; 85347; 85610; 85651; 85730; 86140; 86885; 86900; 86901; 86920; 87040; 87081; 88300; 93005; 93922; 96365; 99152; 99153; 99285; A4618; A6222; A6446; A6449; A7000; A9270; C1725; C1769; C1876; C1894; G0378; J0131; J0360; J1170; J1644; J1815; J2001; J2250; J2270; J2405; J2543; J2704; J2710; J3010; J3370; J3490; J7030; J7120; P9016; Q9967

== ENCOUNTER 2019-06-09 08:55 | Day surgery (SDC) | payer MEDICARE, OTHER ==
[~2019-06-09 08:55] MED LIST changes: -AMLO10TA4 PO; -ASPI-611 PO; -ATOR10TA70 PO; -CARV3.122 PO; -CHLO25TA2 PO; -GLIP10TA11 PO; +INSU100V9 SQ; +LEVO75TA PO; +LISI40TA4 PO; -LOSA100T57 PO; -METF-438 PO; -MULT-1085 PO
[2019-06-09] MEDS ORDERED: LIDOcaine 2% 5ml jelly ONE ×2 (10:09→10:17)
[2019-06-09] MEDS ORDERED: mupirocin 2% ointment 22GM ONE (11:02)
== END 2019-06-09 11:45 | disposition home or self-care (01) ==
LOC: WOUND CARE 08:55
PROVIDERS: ATTEND Surgery
DX: T87.89 Other complications of amputation stump (principal); E11.621 Type 2 diabetes mellitus with foot ulcer; L97.511 Non-pressure chronic ulcer of other part of right foot limited to breakdown of skin; E11.622 Type 2 diabetes mellitus with other skin ulcer; L98.492 Non-pressure chronic ulcer of skin of other sites with fat layer exposed; S81.002A Unspecified open wound, left knee, initial encounter; S81.001A Unspecified open wound, right knee, initial encounter; E11.22 Type 2 diabetes mellitus with diabetic chronic kidney disease; I12.9 Hypertensive chronic kidney disease with stage 1 through stage 4 chronic kidney disease, or unspecified chronic kidney disease; E11.65 Type 2 diabetes mellitus with hyperglycemia; E11.40 Type 2 diabetes mellitus with diabetic neuropathy, unspecified; E11.51 Type 2 diabetes mellitus with diabetic peripheral angiopathy without gangrene; E11.69 Type 2 diabetes mellitus with other specified complication; M86.8X7 Other osteomyelitis, ankle and foot; E11.42 Type 2 diabetes mellitus with diabetic polyneuropathy; E11.52 Type 2 diabetes mellitus with diabetic peripheral angiopathy with gangrene; I96 Gangrene, not elsewhere classified; E03.9 Hypothyroidism, unspecified; N18.3 Chronic kidney disease, stage 3 (moderate); Z87.891 Personal history of nicotine dependence; Z79.4 Long term (current) use of insulin; Z90.710 Acquired absence of both cervix and uterus; Z79.02 Long term (current) use of antithrombotics/antiplatelets; X58.XXXA Exposure to other specified factors, initial encounter; Y93.89 Activity, other specified; Y92.89 Other specified places as the place of occurrence of the external cause; Y99.8 Other external cause status; Y83.5 Amputation of limb(s) as the cause of abnormal reaction of the patient, or of later complication, without mention of misadventure at the time of the procedure
CPT/HCPCS: 36416; 82948; 97597; A6223; A4663; A6021; A6154; A6446